=== PATIENT | female | born 1940 | race Caucasian/White ===

== ENCOUNTER → 2021-03-21 13:57 | Outpatient (CLI) | payer MEDICARE, SELFPAY ==
[2021-03-21 16:07] LABS: COVID19 -Nasal RAPID Negative (Negative)
== END ==
PROVIDERS: PCP Physician Assistant; Visit Provider Physician Assistant
DX: Z01.812 Encounter for preprocedural laboratory examination (principal); Z20.822 Contact with and (suspected) exposure to COVID-19
CPT/HCPCS: 87635; C9803

== ENCOUNTER 2021-03-23 09:07 | Observation (INO) | payer MEDICARE, SELFPAY ==
[2021-03-17 09:26] VITALS: BMI 28.8
[2021-03-22] VITALS (11 sets, daily range): BP systolic 123–142; BP diastolic 52–69; PULSE 55–81; RESP 15–20; TEMP 36.2–36.9; O2SAT 91–99; BMI 26.9
--- NOTE | 2021-03-22 | DI.RAD.S_ITS ---
PROCEDURE: XR KNEE RT 1TO2V INDICATIONS: POSTOP TECHNIQUE: 2 views of the knee were acquired. COMPARISON: None. FINDINGS: Bones: Total right knee arthroplasty in good position. There is an articular drain and postprocedural air noted. No evidence of fracture. Soft tissues: No joint effusion. No suspicious soft tissue calcifications. IMPRESSION: Right total knee arthroplasty in good position Dictated by: Pasha Ramirez M.D. on 03/22/2021 at 18:07 Approved by: Pasha Ramirez M.D. on 03/22/2021 at 18:08
[2021-03-22] MEDS: LACTATED RINGERS 1,000 ML 42 ML IV ×2 (12:22→16:55)
[2021-03-22] MEDS: VANCOMYCIN 1,000 MG/200 ML PIGGYBACK 200 MG IV (13:30)
--- NOTE | 2021-03-22 14:30 | PM.PREOP ---
Pre-operative Note COVID-19 COVID-19 status: Negative Interval Note History & Physical reviewed/Exam performed by Physician: Yes Changes to H&P: No
--- NOTE | 2021-03-22 14:31 | P.OP_ITS ---
Operative Date/Time/Diagnoses Date of procedure: 03/22/21 Time of procedure: 15:00 Pre-op diagnosis: right knee OA Post-op diagnosis: same Procedure & Clinicians Procedure: right total knee arthroplasy Same procedure as scheduled: Yes Indications: The patient has had progressively worsening right knee pain with radiographic changes consistent with arthritis. Non-operative management has failed and the patient has requested total knee replacement. The risks, benefits and alternatives to surgery were discussed with the patient prior to proceeding. Risks discussed included, but were not limited to, failure to relieve pain, stiffness, infection, nerve damage, deep venous thrombosis, pulmonary embolism, stroke, coma, heart attack, permanent paralysis and , as well as the potential need for eventual revision of the prosthetic. Surgeon: Micaela Pete Floral Assistant: Zaid Real Anesthesia Type: General and Spinal Operative Notes Findings: Severe right knee lateral compartment arthritis with valgus deformity, adequate bone good stability Closure Type: primary Specimen(s): none sent Prosthetic devices, grafts, tissues, transplants, or devices: Pete [employer] Nephew Journey BCS 2 femur size 5, tibia size 4, poly size +10, patella size 32 by 7.5 Applied: drain(s) Estimated Blood Loss (mL): 250 Blood products transfused: none Tourniquet time (min): 74 Procedure in detail: The patient was seen in the pre-operative area, where the patient identified the right knee as the operative site and this was marked with my initials. The patient received pre-operative antibiotics, and was taken to the operating room and placed on the operative table in the supine position. After satisfactory anesthesia, a news broadcaster out was performed. The right leg was encircled with a tourniquet about the proximal thigh, and the leg was prepared from the toes to the tourniquet with ChloroPrep in the usual fashion and draped through sterile drapes. The leg was elevated and exsanguinated with Eschmark bandage and the tourniquet inflated to [250] mmHg pressure. The knee was approached through an approximately 18 cm incision centered over the patella and carried into the knee through a medial parapatellar arthrotomy. A portion of the medial and lateral meniscus was resected. Soft tissue was carefully mobilized around the patella the patella was measured with a caliper. Bone was resected from the patella and the patellar height was reconstituted with up an appropriate sized patellar component. A cover was then placed on the patella. A small amount of additional medial and lateral meniscus was resected. The distal femur was cut at 5?. A [+2] cut was used. It looked like an appropriate distal femoral cut and the cut was made without difficulty. An extr amedullary guide was used for the tibial cut. 10 mm was resected off the least affected side.The tibia was prepared. The rotation was assessed. The patient was placed in extension residual medial and lateral meniscus as well as any residual bone was carefully resected. [No] additional tibia was resected. Hemostasis was achieved especially posteriorly. Additional local was injected into the posterior capsule. The extension gap was assessed and additional releases for gap balancing were performed as necessary. It was checked with the gap technical support specialist. The femoral component was trial was placed and the notch was finished. The rotation was assessed and the appropriate size femoral guide was placed on the distal femur and finishing cuts were made. There is no evidence of notching. The anterior, posterior and chamfer cuts were then made. The posterior osteophytes and soft tissues were then removed. The posterior capsule was injected with part of a mixture of 60 ml 0.25% Marcaine mixed with 20 ml Exparel for post operative pain control. The remainder of this mixture was injected into the capsule and subcutaneous tissues during cement curing. The tibial and femoral components were then placed and the knee placed through a range of motion. Range of motion was [0-130], with good stability throughout the range. The trials were then removed, and the tibia was finished. The bone was prepared with pulsatile lavage, and dried with a sponge. Cement was applied and the final prosthetics placed. Excess cement was removed during and after cement curing. A brief Betadine soak was performed. After confirming there was no extruded cement posteriorly, the final tibial insert was placed. The knee was copiously irrigated and the tourniquet deflated. Hemostasis was obtained with the Bovie ca utery. A drain was placed and brought out superolaterally. The capsule was closed with interrupted nonabsorbable suture. The subcutaneous layer was closed with barbed sutures, and the skin with a running 3-0 V-Lock suture and Surgical glue. An Aquacel Ag dressing was applied and the patient was taken to recovery having tolerated the procedure well. Complications: none Post-operative Condition: stable Disposition: Acute Care Plan for aftercare: The patient will be maintained on a standard total knee replacement protocol with weight bearing as tolerated. The patient will receive aspirin and sequential compression devices for DVT prophylaxis. The patient will be discharged home when safe for the home environment.
[2021-03-22] MEDS: CEFAZOLIN 1 GM VIAL 2 GM IV ×2 (15:21→22:08)
--- NOTE | 2021-03-22 15:35 | SUR.OPER ---
Supine on padded OR bed. Pillow under head, arms secured on padded armboards <90 degree abduction. Safety belt across torso. Non-operative leg secured with tape over blanket over lower leg. Operative leg secured in DeMayo/Sylvester/Nathe positioner. Foam padded brace at thigh of operative leg.
[2021-03-22] MEDS: BUPIVACAINE 0.25% W/ EPI 30 ML VIAL 60 ML INJ (15:43)
[2021-03-22] MEDS: BUPIVACAINE LIPOSOME 266 MG/20 ML VIAL INJ (15:43)
[2021-03-22] MEDS: SODIUM CHLORIDE IRRIG SOLUTION 250 ML, POVIDONE-IODINE SPONGE STICKS 1 APPLIC IRR (15:45)
--- NOTE | 2021-03-22 17:57 | SUR.PHASEI ---
Stable PACU stay, pt transported upstairs to room 22 after report called to RADHA Rush. Pt left in stable condition, bed low, locked and SCD'S on, call duke in reach.
[2021-03-22] MEDS: LACTATED RINGERS 1,000 ML 100 ML IV (19:11)
[2021-03-22] MEDS: ESCITALOPRAM 10 MG TABLET 5 MG PO (20:09)
[2021-03-22] MEDS: IBUPROFEN 400 MG TABLET PO (20:09)
[2021-03-22] MEDS: DOCUSATE 100 MG CAPSULE PO (20:09)
[2021-03-22] MEDS: ACETAMINOPHEN 325 MG TABLET 650 MG PO (20:10)
[2021-03-22] MEDS: ATORVASTATIN 20 MG TABLET PO (20:10)
[2021-03-22] MEDS: ASPIRIN EC 81 MG TABLET PO (20:10)
[2021-03-23] VITALS: BP 111/66; PULSE 72; RESP 16; TEMP 36.2; O2SAT 93
[2021-03-23] MEDS: IBUPROFEN 400 MG TABLET PO ×3 (00:54→09:10)
[2021-03-23] MEDS: LACTATED RINGERS 1,000 ML 100 ML IV (04:16)
[2021-03-23 05:16] VITALS: BP 102/48; PULSE 61; RESP 16; TEMP 36.2; O2SAT 92
[2021-03-23 06:02] LABS: Hematocrit 35.2 % (36-46); Hemoglobin 11.8 g/dL (12.0-16.0)
[2021-03-23] MEDS: CEFAZOLIN 1 GM VIAL 2 GM IV (06:03)
--- NOTE | 2021-03-23 07:48 | PM.PNPO.1 ---
Subjective Subjective Date Patient Seen: 03/23/21 Time Patient Seen: 07:50 Interval history: Pain 09/19. Denies fever or chills. No nausea or vomiting. Exam Vital Signs (past 8 hours): - 03/23/21 00:00 03/23/21 05:16 Temperature 97.2 F L 97.1 F L Pulse Rate 72 61 Respiratory Rate 16 16 Blood Pressure 111/66 102/48 L Pulse Oximetry 93 92 Oxygen Delivery Method Room Air Oxygen Flow Rate 0 Narrative Exam Narrative: 81-year-old female resting comfortably in bed in no apparent distress. Motor functions intact bilateral lower extremities. Sensation grossly intact to light touch. No calf tenderness. Dressing is Clean, dry, intact.. Drain in place. Objective Labs Result Diagrams: 03/23/21 05:36 Labs: Laboratory Results - last 24 hr 03/23/21 05:36 Hgb 11.8 L Hct 35.2 L PFSH Medical History (Updated 03/22/21 @ 12:56 by Ileana Murray RN) DVT of axillary vein, acute right GERD (gastroesophageal reflux disease) History of anesthesia reaction History of shingles (~2008) HLD (hyperlipidemia) LBBB (left bundle branch block) (~2015) Nerve pain SHARONA (obstructive sleep apnea) Pre-diabetes Right carpal tunnel syndrome Surgical History (Updated 03/17/21 @ 10:20 by Cassidy Israel RN) History of arthroplasty of left knee Hx of abdominoplasty Hx of bilateral cataract extraction Hx of plastic surgery Hx of tonsillectomy Social History household members: significant other Smoking Status: Never smoker alcohol intake: current Assessment & Plan Post-op Postoperative Procedures: Procedures Operation Date: 03/22/21 13:45 Actual Procedure Side Surgeon p Total Knee Arthroplasty Right Micaela Pete MD Postoperative day: 1 Postoperative status narrative: Patient progressing as expected status post total knee arthroplasty. Mobilize with physical therapy. Likely discharge home this afternoon.
[2021-03-23 08:15] VITALS: BP 115/57; PULSE 54; RESP 16; TEMP 36; O2SAT 96
[2021-03-23] MEDS: ACETAMINOPHEN 325 MG TABLET 650 MG PO ×3 (09:10→20:42)
[2021-03-23] MEDS: ASPIRIN EC 81 MG TABLET PO ×2 (09:10→20:42)
[2021-03-23] MEDS: DOCUSATE 100 MG CAPSULE PO ×2 (09:10→20:41)
--- NOTE | 2021-03-23 09:30 | PT.IIE ---
Current Diagnoses Unilateral primary osteoarthritis, right knee (03/23/21) Surgery Performed Operation Date: 03/22/21 13:45 Actual Procedures p Total Knee Arthroplasty(Right) - Micaela Pete MD Medical History (Last Updated 03/22/21 @ 12:56 by Ileana Murray RN) DVT of axillary vein, acute right GERD (gastroesophageal reflux disease) History of anesthesia reaction History of shingles (~2008) HLD (hyperlipidemia) LBBB (left bundle branch block) (~2015) Nerve pain SHARONA (obstructive sleep apnea) Pre-diabetes Right carpal tunnel syndrome Physical Therapy Inpatient Evaluation/Re-Eval M1 PT/OT-IP Prior Functional Status Start: 03/23/21 12:38 Freq: NEEDED Status: Active Protocol: Document 03/23/21 09:30 AB (Rec: 03/23/21 12:50 AB [id number]) Medical Review Prior Functional Status Medical History Reviewed Yes Communication able to make needs known Mobility and Gait pt stated that she is independent with all mobilities and ambulation using SPC Social History Household Members significant other Living Arrangements House Number of Floors (Floors) One Floor Number of Stairs To Enter/Railing? 2 platform steps to enter Home Environment High Toilet,Walk in Shower Home Equipment Front Wheel Walker,Straight Cane,Shower Seat without Backrest,Hand Held Shower,Grab Bars Near Toilet,Grab Bars In Shower Employment Status Retired M2 PT-IP Current Condition Start: 03/23/21 12:38 Freq: NEEDED Status: Active Protocol: Document 03/23/21 09:30 AB (Rec: 03/23/21 12:50 AB [id number]) Physical Therapy Current Condition Current Condition Evaluation Date 03/23/21 Treatment Diagnosis s/p R TKA; difficulty in walking Onset Date 03/22/21 Weight Bearing Status Weight Bearing Status Weight Bear as Tolerated Allowed Weight Bearing Amount (enter % RLE WBAT or #) (%) M3 PT-IP Subjective Start: 03/23/21 12:38 Freq: NEEDED Status: Active Protocol: Document 03/23/21 09:30 AB (Rec: 03/23/21 12:50 AB [id number]) Subjective Physical Therapy Visit Type Type Initial Evaluation Visit Start Time 09:30 Visit Stop Time 10:30 Total Visit Minutes 60 Number of NUCLEAR MEDICINE TECHNICIAN Visits 0 Therapy Pain Assessment Pain When Pain Assessed At Rest Pain Present Pain Present Pain Reported Location Right Knee Intensity 1 Scale Used Numeric (0 - 10) Pain Management Techniques Distraction,Modification of Treatment,Re-positioning, Timing of Activity with Medications M4 PT-IP Mobility and Gait Start: 03/23/21 12:38 Freq: NEEDED Status: Active Protocol: Document 03/23/21 09:30 AB (Rec: 03/23/21 12:50 AB [id number]) PT-Bed Mobility Assessment Supine to Sit Supine to Sit Standby Assistance Sit to Supine Sit to Supine Standby Assistance PT-Transfer Assessment Sit to and From Stand Sit to and from Stand Contact Guard Assistance, Minimal Assistance,Use of Upper Extremities Equipment Transfer Assistive Device Gait Belt,Front Wheeled Walker Orthotic/Prosthetic Devices or Brace: No Transfers Transfer Destination Bed,Chair Transfer Technique ambulated using FWW Transfer Ability Level of Assist Contact Guard Assistance, Minimal Assistance,1 Person Assistance,Use of Upper Extremities Comments Mobility Comments pt sitting on chair. significant other in room with pt. significant other stated that she broke her R hip before and is limited with physical assistance that she can provide to pt. pt completed sit to stand from chair x 3 reps min A and max cues. pt has decrease short term memory and requires cues for techniques and safety. pt ambulated in room ~ 30 ft using FWW min A. ambulated towards the bed. demonstrated sit<>supine SBA. completed sit to stand CGA to min A and max cues for techniques. pt ambulated to the chair using fWW CGA to min A. presents with antalgic gait. pt ambulated out in the hallway and completed up/down platform step x 2 sets min A and cues. ambulated back to the room using FWW CGA to min A and sat on chair. pt requested to go back to bed and completed step transfer using FWW CGA and cues. sit to supine SBA. positione dpt on the bed. call light and table placed within reach. set up caregiver training at 1pm this afternoon with pt and significant other. Gait Assessment Gait Gait Assistance Required: Contact Guard Assist,Minimum Assistance Distance (Feet) 30 Able to Maintain Weight Bearing Status Yes During Gait Assistive Devices Assistive Device Gait Belt,Front Wheeled Walker Orthotic/Prosthetic Devices or Brace: No Gait Deviations General Gait Pattern Antalgic,Decreased Stride Length,Decreased Feet Clearance Factors Limiting Gait Function Factors Limiting Gait Function Decreased Activity Tolerance, Decreased Strength,Difficulty Following Directions,Limited Range of Motion,Pain,Poor Balance,Poor Safety Awareness Stair Climbing Assessment Evaluation Level of Assist On Stairs Minimal Assistance Devices Stair Climbing Assistive Devices Front Wheel Walker Technique/Endurance Stair Climbing Direction Ascend and Descend Stair Climbing Technique Step to Step Number of Steps Climbed 1 Query Text: Stair Climbing Set # Repetitions (reps) 2 PT-Balance Assessment Sitting Balance and Reactions Static Sitting Balance Ability Good Dynamic Sitting Balance Ability Good Standing Balance and Reactions Static Standing Balance Ability Fair Dynamic Standing Balance Ability Fair Device Used FWW M5 PT-IP Objective Assessments Start: 03/23/21 12:38 Freq: NEEDED Status: Active Protocol: Document 03/23/21 09:30 AB (Rec: 03/23/21 12:50 AB [id number]) Orientation Orientation/Cognition Level of Alertness Alert Orientation Name,Place,Situation Language Function Ability No Deficits Noted Safety Awareness Decreased Safety Awareness Memory Description 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,Pole Tester Impaired Gross Range of Motion Lower Extremity ROM Assessment Within Functional Limits Strength Lower Extremity Strength Assessment Right Impaired Hip 4-/5 Knee 4-/5 Sensation Assessment Sensation Gross Sensation WNL Muscle Tone Muscle Tone WNL Yes M6 PT-IP Treatment Start: 03/23/21 12:38 Freq: NEEDED Status: Active Protocol: Document 03/23/21 09:30 AB (Rec: 03/23/21 12:50 AB [id number]) Physical Therapy Treatment Education Education Provided Precautions,Weight Bearing Status,Post-Op Packet,Safety M7 PT-IP Assessment and Plan Start: 03/23/21 12:38 Freq: NEEDED Status: Active Protocol: Document 03/23/21 09:30 AB (Rec: 03/23/21 12:50 AB [id number]) PT Summary Assessment and Plan Potential Rehabilitation Potential Good Status of Condition at Evaluation Stable Summary Impairments Pain,ROM,Strength,Balance, Coordination,Sensation,Tone, Cognition,Bed Mobility, Transfers,Gait,Activity Tolerance Assessment Summary pt requiring CGA to min A with mobility but requires max cues with all tasks. Set up caregiver training at 1 pm today. will assess progress for safe d/c home. pt stated that she is set up for outpt PT. Pt's significant other is limited with assistance she can provide with pt but will conduct caregiver and will assess safe d/c plan. Goals Bed Mobility Goal Standby Assistance Transfer Goal Standby Assistance,Front Wheeled Walker Gait Goal Standby Assistance,Front Wheel Walker Gait Distance 150 Other Goals up/down 2 platform steps using FWW CGA Days to Meet Goals 10 Frequency of Treatment Frequency Of Treatment Twice a Day Treatment Plan Physical Therapy Treatment Plan Bed Mobility Training,Transfer Training,Gait Training, Therapeutic Exercise,Balance Retraining,Post Op Education, Discharge Planning,Hot or Cold Pack,Neuromuscular Re-ed, Coordination Retraining,Manual Therapy Precautions Other Precautions RLE WBAT Recommendations To Nursing Amount of Assist Needed 1 Person Assist Discharge Recommendations PT Discharge Recommendations Home with 02/04 Assist Available,Outpatient PT Transportation Needs at Discharge Private Vehicle
[2021-03-23] MEDS: OXYCODONE IR 5 MG TABLET PO ×2 (11:28→15:37)
--- NOTE | 2021-03-23 11:35 | CM.DANOTE ---
DCP/Assessment: Reviewed chart. Patient is a 81yr old female admitted to [facility] for elective right TKA performed on 03-22-21. PCP listed is Osei Flynn. Primary payor is 1)Medicare 2)[facility]. Met with patient this AM explained CM/SW role. Patient resting comfortably in bed and spouse at bedside. Patient reports that she plans to d/c home when stable. Patient has all needed DME and outpatient therapy appointment scheduled in [place] on Sunday03-25-21. It is anticipated that patient will either d/c this afternoon vs. in AM. P: Home when stable. SHIN Lara Discharge Planning/Care Management CM Discharge Assessment Start: 03/23/21 11:20 Freq: Status: Active Protocol: Document 03/23/21 11:20 KJS (Rec: 03/23/21 11:35 KJS [id number]) Discharge Planning Assessment Assigned Diesel Motor Mechanic SHIN Lara Contact Information Raysa Graham (spouse) ph# [phone] Advance Directives? Yes Advance Directives on File No History Provided By Patient,Medical Record Prior Living Arrangements House Household Members significant other Type of transporation used prior to Drives own vehicle admit Independent with ADL's Yes Is patient alert and oriented? Yes Caregiver for Another No DME Already Rented / Owned FWW / Walker Patient/Family Preference OP PT Therapy Barriers to Discharge No Discharge Plan Home Transportation Arrangement Spouse to provide transport. Referrals Initiated None needed Whiteboard Updated in Patient Room with Yes name and ext. # of Diesel Motor Mechanic Review Status In Process Next Review Type Continued Stay Review Pre-Anesthesia Assessment Start: 03/17/21 09:26 Freq: Status: Complete Protocol: Document 03/17/21 09:26 CAB (Rec: 03/17/21 10:36 CAB [id number]) Pre-Anesthesia Assessment Preferred Name Sudha Patient Information Reviewed Via Phone Assessment Assessment Completed With Patient Diagnostic Results BMP/CMP,EKG Comment Outside Chem/EKG only scanned, COVID screen-needs to schedule Primary Care Provider Osei Perry Seen Specialist in Last 12 Months Yes Specialist Seen Orthopedist Primary Language Kinyarwanda Associate Theatre Professor Required No Height 162.56 cm Weight 76.204 kg Body Mass Index (BMI) 28.8 Hearing Ability Normal Visual Assist None Dentition Type Teeth, Natural Present Barriers to Learning None Hx Anesthesia Reactions Yes: PONV Hx Family Anesthesia Reaction No Hx Malignant Hyperthermia No Hx Blood Transfusions Yes: s/p LT TKA-autologous Hx Blood Transfusion Reaction No Anesthesia Review Requested No alcohol intake current alcohol intake frequency 0-2 drinks per day Smoking Status Never smoker Substance Use Type does not use Pain Present Pain Reported Musculoskeletal Symptoms Abnormal Gait,Difficulty Walking,Joint Pain History of Falling (Recent or History of Yes ) Patient is completely paralyzed or No completely immobile Prosthesis or Orthotic Device Cane Mental Status Oriented to own ability Is patient on oxygen? No Does patient have HALL/SOB No Hx Sleep Apnea Yes: Pt reports Mild, no CPAP Currently Taking a Beta Mayur No Can You Climb a Flight of Stairs Without No SOB Hx Chest Pain No Hx SOB No Hx Syncope or Dizziness No Anti-Coagulant Therapy No Has a Crossing Supervisor No Cardiac Testing No: Echo @ [facility] 11/06/19 Hx Pacemaker/ICD No Pacemaker Rep Required? No Cardiac Clearance Received Not Applicable Comment Echo report scanned to record Diet Type At Home Regular dysphagia No Gastrointestinal Symptoms Constipation,Diarrhea,Reflux Urinary Catheter Present No Hx Urinary Self Catheterization No Diabetes No: Pre-diabetes, new diagnosis Patient No Lactating No Hx Drug Resistant Organism No Presence of External or Internal Medical Yes: Left knee, eye lens Devices Have you had any close contact with No someone diagnosed with COVID-19? Marital Status Lives With spouse Prior Living Arrangements House Number of Floors (Floors) One Floor Support System Friend(s),Spouse Does the Patient Have Assistance After Yes: is 86, concern for Surgery ability to care for pt Patient Discharge Plan Description Return Home Comment Pt advised one day length of stay per surgeon Feels Safe in Current Environment Yes Been Physically Hurt or Threatened By a No Person in Current Environment Do you have thoughts of harming yourself None or others? Are you currently considering suicide? No Do you have a plan to hurt yourself or No Plan others? Do You Have Any Spiritual Beliefs That No May Affect Your HC Choices? Do You Have Any Cultural Practices That No May Affect Your HC Choices? Comment Zaheer Who Can We Speak to About Patient's Care Family, friends Identifying Code for Release of Patient Declines to issue Information Health Care Proxy/Next of Kin Raysa () Health Care Proxy Emergency Contact Name Raysa () Emergency Contact Advance Directives? Yes Advance Directives on File No Requested Patient Bring Advanced Yes Directives DOS Power of Tanning Wheel Filler Yes Power of Tanning Wheel Filler Name Raysa () Power of Tanning Wheel Filler PAC Instructions Do not shave/clip surgical site,Durable medical equipment ,Medications to take/avoid, Nasal antibiotic,No ETOH/ petroleum product on skin DOS, NPO,Post-op transportation,Pre -surgical wash,Sturdy shoes/ comfortable clothes,Do not bring valuables and remove jewelry
[2021-03-23 12:00] VITALS: BP 147/78; PULSE 70; RESP 24; TEMP 35.8; O2SAT 96
--- NOTE | 2021-03-23 12:01 | PM.DS.1 ---
History of Present Illness History of Present Illness Date Patient Seen: 03/23/21 Time Patient Seen: 12:01 Chief complaint: OPB Narrative: see progress note Discharge Providers Provider Date of admission: 03/23/21 09:07 Discharge Date: 03/23/21 Primary care physician: Osei Perry MD Consults: 03/22/21 17:52 Consult to Discharge Planning Routine Comment: Consult to Physical Therapy Evaluate & Treat Comment: Physician Instructions: postop TKA protocol Consult to Respiratory Therapy Evaluate & Treat Comment: Physician Instructions: Evaluate and treat Discharge provider: Zaid Real PA-C Summary Hospital Course Discharge Diagnosis: right knee osteoarthritis Hospital Course: Procedure: right total knee arthroplasy Same procedure as scheduled: Yes Indications: The patient has had progressively worsening right knee pain with radiographic changes consistent with arthritis. Non-operative management has failed and the patient has requested total knee replacement. The risks, benefits and alternatives to surgery were discussed with the patient prior to proceeding. Risks discussed included, but were not limited to, failure to relieve pain, stiffness, infection, nerve damage, deep venous thrombosis, pulmonary embolism, stroke, coma, heart attack, permanent paralysis and , as well as the potential need for eventual revision of the prosthetic. Surgeon: Micaela Pete Indigo Vat Tender Cloth: Zaid Real Anesthesia Type: General and Spinal Operative Notes Findings: Severe right knee lateral compartment arthritis with valgus deformity, adequate bone good stability Closure Type: primary Specimen(s): none sent Prosthetic devices, grafts, tissues, transplants, or devices: [employer] BCS 2 femur size 5, tibia size 4, poly size +10, patella size 32 by 7.5 Applied: drain(s) Estimated Blood Loss (mL): 250 Blood products transfused: none Tourniquet time (min): 74 Status at Discharge Cognitive/behavioral status at discharge: at baseline, oriented Functional status at discharge: uses cane/walker Overall status at discharge: patient is progressing back to baseline Exam Vital Signs (past 8 hours): - 03/23/21 05:16 03/23/21 08:15 Temperature 97.1 F L 96.8 F L Pulse Rate 61 54 L Respiratory Rate 16 16 Blood Pressure 102/48 L 115/57 L Pulse Oximetry 92 96 Oxygen Delivery Method Room Air Oxygen Flow Rate 0 Narrative Exam Narrative: see progress note Objective Labs Result Diagrams: 03/23/21 05:36 Labs: Laboratory Results - last 24 hr 03/23/21 05:36 Hgb 11.8 L Hct 35.2 L [facility] Medical History (Updated 03/22/21 @ 12:56 by Ileana Murray, RADHA) DVT of axillary vein, acute right GERD (gastroesophageal reflux disease) History of anesthesia reaction History of shingles (~2008) HLD (hyperlipidemia) LBBB (left bundle branch block) (~2015) Nerve pain SHARONA (obstructive sleep apnea) Pre-diabetes Right carpal tunnel syndrome Surgical History (Updated 03/17/21 @ 10:20 by Cassidy Israel RN) History of arthroplasty of left knee Hx of abdominoplasty Hx of bilateral cataract extraction Hx of plastic surgery Hx of tonsillectomy Social History household members: significant other Smoking Status: Never smoker alcohol intake: current Discharge Assessment & Plan Assessment and Plan Assessment: patient progressing as expected status post total knee arthroplasty Plan of Treatment: patient did well with physical therapy. Physical therapy will work with the patient and her caregiver again this afternoon and will be discharged home if safe for home environment. Weightbearing as tolerated. Standard total knee replacement protocol. Discharge Plan Discharge Plan Patient Disposition: Home Provider Discharge Comment: Discharge home after PT this afternoon Discharge orders & Medications Prescriptions: New acetaminophen 325 mg Tablet 650 mg PO TID Qty: 60 RF: 0 aspirin 81 mg Tablet,Delayed Release (Dr/Ec) 81 mg PO BID Qty: 60 RF: 0 ibuprofen 400 mg Tablet 400 mg PO Q4HR Qty: 60 RF: 0 docusate sodium [DOK] 100 mg Capsule 100 mg PO BID Qty: 20 RF: 0 oxycodone 5 mg Tablet 5 mg PO Q3HR PRN (Reason: Pain, Moderate (4-6)) Qty: 40 RF: 0 Continued atorvastatin 20 mg Tablet 20 mg PO BEDTIME RF: 0 escitalopram oxalate 5 mg Tablet 5 mg PO BEDTIME RF: 0 Discontinued ibuprofen 200 mg Capsule 200 mg PO QD-BID PRN (Reason: Pain) RF: 0 acetaminophen 500 mg Tablet 500 mg PO BID PRN (Reason: Pain) RF: 0 Follow up/Referrals: Osei Perry MD [Primary Care Provider] - Micaela Pete MD [Physician] - (2 weeks) Diet/Activity/Treatments Diet: Diet as Tolerated Activity: Weight-bearing as tolerated Cold/Heat Therapy: Apply ice to knee as needed Skin/Wound/Dressing Care Report to your healthcare provider any signs of infection, such as:: chills, fever, increased pain, unusual drainage and unusual redness Dressing: Keep dressing clean and dry. May remove Alton wrap in 48-72 hours. Leave dressing in place Visit Report/Discharge Packet Instructions: DI for Knee Replacement, DI for Prescription Opioid Use Stand Alone Forms: Surgery Discharge Discharge Data Primary Care Provider: Osei Perry Attending Provider: Micaela Pete
[2021-03-23] MEDS: ONDANSETRON 4 MG/2 ML INJ IV (13:25)
--- NOTE | 2021-03-23 13:37 | PT-IP ANOTE ---
checked on pt and pt refused PT. pt stated that she fainted. Significant other stated that pt was sitting on chair and was not feeling well and all of a sudden had her head tilted backwards and she called for the nurse. pt stated that she was unconscious for at least 2 min. Nurse came in and stated that pt is not going home today and will leave telemetry on pt. pt just want to rest at this time. will check back tomorrow for caregiver training.
--- NOTE | 2021-03-23 14:28 | P.CONS_ITS ---
History of Present Illness Consult details Date Patient Seen: 03/23/21 Time Patient Seen: 14:28 Chief complaint: OPB Narrative: This is an 81-year-old female with past medical history of hyperlipidemia, pre diabetes, SHARONA, and prior DVT who was admitted yesterday aft er a right total knee replacement with Orthopedic surgery. Patient was doing well with physical therapy today and work for about an hour. She then moved into the chair and in the middle of her meal she began to feel dizzy, diaphoretic, and passed out for about 30 seconds according to the nurse. She had had an oxycodone prior to her working with physical therapy. When she regained consciousness, there was no loss of bowel or bladder, and the patient was her usual self. She was clammy feeling afterwards which resolved within a few minutes. Prior to this she denied any chest pain, shortness of breath, dyspnea on exertion, headaches, vision changes. Her blood pressure yesterday was fairly unremarkable. After she regained consciousness her blood pressure was in the 140s, the patient was not on a security consultant at that time. She denies any recent fevers, chills, and her pain is currently controlled after her knee replacement. She has a history of a left bundle yesenia block for many years. She sees a signals intelligence analysis manager annually and has had previous echocardiograms and stress tests which have been unremarkable, although most recently these were many years ago. She does note that she has had another episode of syncope in the past, but this was many years ago and related to which she recalls a great amount of anxiety and stress at the time. During that episode she also felt carola phoretic and dizzy prior to passing out. Meds Home Medications and Allergies Home Medications Medication Instructions Recorded Confirmed Type atorvastatin 20 mg tablet 20 mg PO BEDTIME 03/17/21 03/22/21 History escitalopram oxalate 5 mg tablet 5 mg PO BEDTIME 03/17/21 03/22/21 History acetaminophen 325 mg tablet 650 mg PO TID #60 tab 03/23/21 Rx aspirin 81 mg tablet,delayed 81 mg PO BID #60 tab 03/23/21 Rx release docusate sodium 100 mg capsule 100 mg PO BID #20 cap 03/23/21 Rx (DOK) ibuprofen 400 mg tablet 400 mg PO Q4HR #60 tab 03/23/21 Rx oxycodone 5 mg tablet 5 mg PO Q3HR PRN #40 tab 03/23/21 Rx Allergies Allergy/AdvReac Type Severity Reaction Status Date / Time Sulfa (Sulfonamide Allergy Unknown-Childhood Verified 03/22/21 12:23 Antibiotics) reaction Review of Systems Review of Systems Narrative: All other systems reviewed with the patient and are negative unless otherwise stated. Exam Vital Signs (past 8 hours): - 03/23/21 08:15 03/23/21 12:00 Temperature 96.8 F L 96.4 F L Pulse Rate 54 L 70 Respiratory Rate 16 24 Blood Pressure 115/57 L 147/78 H Pulse Oximetry 96 96 Oxygen Delivery Method Room Air Oxygen Flow Rate 0 Narrative Exam Narrative: GENERAL APPEARANCE: Well developed, well nourished, in no acute distress. SKIN: Inspection of the skin reveals no rashes, ulcerations or petechiae. HEENT: Normocephalic atraumatic, extraocular muscles are intact, oropharynx is clear and mucous membranes are moist, neck is supple without adenopathy NECK: Supple and symmetric. There was no thyroid enlargement, and no tenderness, or masses were felt. CHEST: Normal AP diameter and normal contour without any kyphoscoliosis. LUNGS: Auscultation of the lungs revealed no wheezes, rhonchi, or rales. CARDIOVASCULAR: There was a regular rate and rhythm without any murmurs, gallops, rubs. Peripheral pulses were 2+ and symmetric. ABDOMEN: Soft and nontender with normal bowel sounds. No ascites was noted. MUSCULOSKELETAL: There was no tenderness or effusions noted. Muscle strength and tone were normal. EXTREMITIES: No cyanosis, clubbing or edema. NEUROLOGIC: Alert and oriented x 3. Normal affect. Gait was normal. Strength is +5/5 in the Upper Extremities and Lower Extremities Bilaterally. Sensation to touch was normal. Objective ECG Impression: LBBB, non-specific T wave abnormality in lateral leads, unknown chronicity. Appears similar to prior tracings Labs Result Diagrams: 03/23/21 05:36 Labs: Laboratory Results - last 24 hr 03/23/21 05:36 Hgb 11.8 L Hct 35.2 L Assessment & Plan Assessment & Plan narrative: This is an 81-year-old female with past medical history of hyperlipidemia, pre diabetes, SHARONA, and prior DVT who was admitted yesterday after a right total knee replacement with Orthopedic surgery. But a sitter as caudal today after episode of syncope. 1. Syncope - history is reassuring for benign etiology. Patient with known LBBB which is present on EKG, prior tracings appear quite similar. Patient's discharge held. Cannot completely rule out cardiac etiology but appears less likely. - initial labs unremarkable, mild leukocytosis. Will also repeat troponin at 8 hours given event was recent to rule out ACS though this is unlikely. - keep on telemetry. - if no concerning lab findings and no telemetry events can discharge home tomorrow. - h/h this AM 11.8 2. LBBB, chronic - patient with previous EKG similar to today's. Reports prior TTEs and stress tests which have been unremarkable. - continue telemetry. 3. SHARONA, chronic Code: full as discussed with the patient, surrogate decision maker is the patient's , Raysa at bedside. Thank you for the consultation. Medicine will continue to follow telemetry while the patient is still admitted and follow up repeat troponin, otherwise plan to sign off.
--- NOTE | 2021-03-23 14:49 | PC.NURSE ---
A&Ox3. VSS. Pain 2/10 in right knee relieved with scheduled tylenol and ibuprofen. Worked with PT around 11:00. Had an increase of pain to 5/10 and was given 5 mg oxycodone. Patient was eating lunch around 12:30 when significant other came running for help. This race and sports book writer and other staff found patient unresponsive sitting in her chair, head tilted back back and eyes open. After about 30 seconds the patient began to respond. Her vitals were taken: BP: 147/78, 70 bpm, 96.7 F, resp 24, 96% room air. Patient was diaphoretic and nauseous, had 600 cc emesis and another 200 after transferring back to her bed. Provider was notified. Patient was placed on Tele, BBB and sinus bradycardia. EKG performed and labs ordered. Left hand IV site leaking. New IV placed in right AC, left IV discontinued. Call light within reach, bed low.
[2021-03-23 14:52] LABS: Add Manual Diff / Slide Review NO; Basophils Absolute Auto 0 /uL (0-100); Basophils Percent Auto 0.3 % (0-2); Eosinophils Absolute Auto 0 /uL (0-450); Eosinophils Percent Auto 0.3 % (2-4); Hematocrit 34.5 % (36-46); Hemoglobin 11.4 g/dL (12.0-16.0); Lymphocytes Absolute Auto 1600 /uL (1100-4500); Lymphocytes Percent Auto 10.9 % (25-40); Mean Corpuscular HGB Conc 33.1 % (30-36); Mean Corpuscular Hemoglobin 31.7 PG (26-34); Mean Corpuscular Volume 95.7 fL (80-100); Monocytes Absolute Auto 1600 /uL (0-900); Monocytes Percent Auto 11.5 % (3-14); Neutrophils Absolute Auto 11100 /uL (1500-7000); Platelet Count 193 X10^3/uL (150-400); Red Cell Distribution Width 13.3 % (11.6-14.8); White Blood Cell Count 14.3 X10^3/uL (4.5-11.0)
[2021-03-23 15:14] LABS: Alanine Aminotransferase 15 IU/L (<35); Albumin 3.4 g/dL (3.5-5.0); Albumin Globulin Ratio 1.5 (1.0-2.8); Alkaline Phosphatase 52 U/L (38-126); Aspartate Aminotransferase 18 IU/L (14-36); BUN Creatinine Ratio 30.8 (6-22); Bilirubin Total 0.6 mg/dL (0.2-1.3); Blood Urea Nitrogen 20 mg/dL (7-17); Carbon Dioxide 27 mmol/L (22-32); Chloride 102 mmol/L (98-107); Estimated Glomerular Filt Rate > 60.0 mL/min (>60); Globulin 2.3 g/dL (1.7-4.1); Glucose 148 mg/dL (80-110); HEMOLYSIS < 15 (0-50); Magnesium 2.1 mg/dL (1.6-2.3); Potassium 3.8 mmol/L (3.4-5.1); Sodium 134 mmol/L (137-145); Total Protein 5.7 g/dL (6.3-8.2)
[2021-03-23 15:26] LABS: Troponin I < 0.012 ng/mL (0.01-0.034)
[2021-03-23 15:45] VITALS: BP 107/76; PULSE 60; RESP 16; TEMP 36.1; O2SAT 97
[2021-03-23] MEDS: SODIUM CHLORIDE 0.9% 500 ML 1000 ML IV (17:20)
--- NOTE | 2021-03-23 18:43 | PC.NURSE ---
Addendum entered by Janis Navarro R.N. 03/23/21 21:01: Dr Pete came to assess patient. Ordered 1 time dose of Dilaudid to assess for effects. If tolerated have orders to continue. Addendum entered by Janis Navarro R.N. 03/23/21 19:38: Spoke to Dr Mayberry about using tramadol, new orders placed. Dr Pete called and wanted to try PO toradol in place of ibuprofen. Toradol and ibuprofen are not to be given within 6 hours of each other. Will notify oncoming shift. Original Note: Shift note: Patients spouse came out of the room asking for help. This RN found PRE PLANNING ADVISOR and patient in toilet, patient was vomiting, diaphoretic, and pale. Patient c/o dizziness and weakness. Waiting for nausea to pass, brought inpatient recliner to door and transferred patient into chair after cleaning patient up from emesis. Notified Dr Mayberry that patient was near syncopal and tele reading was currently HR of 49. Ordered 500cc bolus of NS with stat EKG. Started to infuse bolus, patient c/o pain at IV site, inserted new line and continued bolus. Notified Dr Mayberry that both episodes of emesis and syncope/near syncope were after PO narcotic administration. Reassess patient after dinner which was able to eat 50% and reports feeling better. Asked to return to bed. Educated patient that for the remainder of this shift will be utilizing bedside commode for safety and easier transfers should it be necessary. Patient acknowledges and accepts recommendation. High fall risk d/t recent fall and episodes of syncope and near syncope today. Bed alarm on and call light in reach.
[2021-03-23] MEDS: TRAMADOL 50 MG TABLET 25 MG PO (19:47)
[2021-03-23] MEDS: KETOROLAC 10 MG TABLET PO (19:48)
[2021-03-23 20:03] VITALS: BP 117/88; PULSE 66; RESP 16; TEMP 36.4; O2SAT 99
[2021-03-23] MEDS: ESCITALOPRAM 10 MG TABLET 5 MG PO (20:41)
[2021-03-23] MEDS: ATORVASTATIN 20 MG TABLET PO (20:41)
[2021-03-23] MEDS: HYDROMORPHONE 2 MG TABLET PO (21:00)
[2021-03-23 22:29] LABS: Troponin I < 0.012 ng/mL (0.01-0.034)
[2021-03-24] VITALS (7 sets, daily range): BP systolic 112–143; BP diastolic 50–71; PULSE 62–85; RESP 16–18; TEMP 36.1–36.3; O2SAT 92–96
[2021-03-24] MEDS: HYDROMORPHONE 2 MG TABLET PO ×2 (00:20→18:59)
[2021-03-24] MEDS: LACTATED RINGERS 1,000 ML 100 ML IV ×2 (00:45→10:47)
--- NOTE | 2021-03-24 03:42 | PC.NURSE ---
This RN came in to assess patient and administer 2mg Diluadid one time dose order at 0000. BOILER REPAIR SUPERVISOR was in the room taking the patients vitals and informed the RN that the patient had just gotten up to the bedside commode and her VS decreased while on the commode. Prior to getting up, VS were 128/59, while at the commode they were 93/62 and the patient c/o lightheaded and dizziness. BOILER REPAIR SUPERVISOR assisted patient back into bed and VS were 111/44. All VS taken by BOILER REPAIR SUPERVISOR were done on the right arm. This RN raised the head of the patients bed to 35 degrees and retook the patients VS on the Left arm which read 127/59. MARY Polanco was notified of event and that no fluids were currently going. Verbal orders were given to continue the patients current order of LR at 100 mL/hr which were DC with AM shift. Patient was given pain medication, call light left within reach, and no other requests at this time.
[2021-03-24] MEDS: TRAMADOL 50 MG TABLET 25 MG PO (04:56)
[2021-03-24] MEDS: IBUPROFEN 400 MG TABLET PO ×5 (04:56→20:50)
[2021-03-24] MEDS: ASPIRIN EC 81 MG TABLET PO ×2 (08:48→20:51)
[2021-03-24] MEDS: DOCUSATE 100 MG CAPSULE PO ×2 (08:48→20:50)
[2021-03-24] MEDS: HYDROMORPHONE 2 MG TABLET 4 MG PO ×2 (08:49→12:32)
[2021-03-24] MEDS: ACETAMINOPHEN 325 MG TABLET 650 MG PO ×3 (08:49→20:51)
--- NOTE | 2021-03-24 10:25 | PT.IPTN ---
Current Diagnoses Unilateral primary osteoarthritis, right knee (03/23/21) Surgery Performed Operation Date: 03/22/21 13:45 Actual Procedures p Total Knee Arthroplasty(Right) - Micaela Pete MD Physical Therapy Treatment Note M2 PT-IP Current Condition Start: 03/23/21 12:38 Freq: NEEDED Status: Active Protocol: Document 03/23/21 09:30 AB (Rec: 03/23/21 12:50 AB [email or web address]) Physical Therapy Current Condition Current Condition Evaluation Date 03/23/21 Treatment Diagnosis s/p R TKA; difficulty in walking Onset Date 03/22/21 Weight Bearing Status Weight Bearing Status Weight Bear as Tolerated Allowed Weight Bearing Amount (enter % RLE WBAT or #) (%) M3 PT-IP Subjective Start: 03/23/21 12:38 Freq: NEEDED Status: Active Protocol: Document 03/24/21 10:25 AB (Rec: 03/24/21 13:33 AB [id number]) Subjective Physical Therapy Visit Type Type Treatment Note Visit Start Time 10:25 Visit Stop Time 11:40 Total Visit Minutes 75 Number of SPECIALIST PHYSICIAN Visits 0 Physical Therapy Visit Comments Patient Comments pt stated that pain is better but voiced concerns about moving and pain going to increase again. pt educated and agreed to do PT; pt's significant other in room for caregiver training Therapy Pain Assessment Pain When Pain Assessed At Rest Pain Present Pain Present Pain Reported Location Right Knee Intensity 3 Scale Used Numeric (0 - 10) Pain Management Techniques Distraction,Modification of Treatment,Re-positioning, Timing of Activity with Medications M4 PT-IP Mobility and Gait Start: 03/23/21 12:38 Freq: NEEDED Status: Active Protocol: Document 03/24/21 10:25 AB (Rec: 03/24/21 13:33 AB [email or web address]) PT-Bed Mobility Assessment Supine to Sit Supine to Sit Minimal Assistance Sit to Supine Sit to Supine Minimal Assistance PT-Transfer Assessment Sit to and From Stand Sit to and from Stand Contact Guard Assistance, Minimal Assistance,1 Person Assistance,Use of Upper Extremities Equipment Transfer Assistive Device Gait Belt,Front Wheeled Walker Orthotic/Prosthetic Devices or Brace: No Transfers Transfer Destination Bed,Chair Transfer Technique ambulated using FWW Transfer Ability Level of Assist Contact Guard Assistance, Minimal Assistance,1 Person Assistance,Use of Upper Extremities Comments Mobility Comments caregiver training conducted. educated pt's S.O.( significant other) regarding use of safety belt and how to assist pt. S.O was able to put safety belt on but with cues and tends to be unsure on how to manage pt and requires constant cues for directions. S.O assisted pt with sit to stand and and pt ambulated towards the bed using FWW with SO assisting. pt completed sit <>supine and instructed SO on how to assist pt. pt ambulated again towards the platform step using FWW with SO assisting. completed up/ down platform step using FWW SO assisting but PT also provided min A due to pt's unsteadiness. pt ambulated back to the room using FWW and SOC assisted pt. pt requested to go back to bed and completed bed mobility with SO assisting pt. positioned pt on the bed but then stated that she has to use the toilet. refused to walk to the toilet and just wants the bedside commode. stated that they have a bedside commode at home. completed supine to sit min A from SO. SO donned safety belt but continues to require cues on how to manage. SO assisted pt with sit to stand and transfer to bedside commode using fWW but require instructions from PT on how to complete as SO is not sure on how to assist pt. pt completed sit to stand from bedside commode with SO assisting and also assisted pt with hygiene care. pt completed step transfer back to bed using FWW and bed mobiltiy sit to supine with SO assisting pt. positioned pt in bed. call ight and table placed within reach. informed pt regarding mobility concerns and that further caregiver training is needed. pt and SO understood. pt also keep repeating that she does not want to go home today but tomorrow. Left pt in room with significant other. Gait Assessment Gait Gait Assistance Required: Minimum Assistance Distance (Feet) 12 Able to Maintain Weight Bearing Status Yes During Gait Assistive Devices Assistive Device Gait Belt,Front Wheeled Walker Orthotic/Prosthetic Devices or Brace: No Gait Deviations General Gait Pattern Antalgic,Decreased Stride Length,Decreased Feet Clearance Factors Limiting Gait Function Factors Limiting Gait Function Decreased Activity Tolerance, Decreased Strength,Difficulty Following Directions,Limited Range of Motion,Pain,Poor Balance,Poor Safety Awareness Stair Climbing Assessment Evaluation Level of Assist On Stairs Minimal Assistance,2 Person Assistance Devices Stair Climbing Assistive Devices Front Wheel Walker Technique/Endurance Stair Climbing Direction Ascend and Descend Stair Climbing Technique Step to Step Number of Steps Climbed 1 Stair Climbing Set # Repetitions (reps) 1 M5 PT-IP Objective Assessments Start: 03/23/21 12:38 Freq: NEEDED Status: Active Protocol: Document 03/23/21 09:30 AB (Rec: 03/23/21 12:50 AB [id number]) Orientation Orientation/Cognition Level of Alertness Alert Orientation Name,Place,Situation Language Function Ability No Deficits Noted Safety Awareness Decreased Safety Awareness Memory Description 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,Detention Impaired Gross Range of Motion Lower Extremity ROM Assessment Within Functional Limits Strength Lower Extremity Strength Assessment Right Impaired Hip 4-/5 Knee 4-/5 Sensation Assessment Sensation Gross Sensation WNL Muscle Tone Muscle Tone WNL Yes M6 PT-IP Treatment Start: 03/23/21 12:38 Freq: NEEDED Status: Active Protocol: Document 03/24/21 10:25 AB (Rec: 03/24/21 13:33 AB [id number]) Physical Therapy Treatment Exercises Exercises Heel Slides Education Education Provided Safety M7 PT-IP Assessment and Plan Start: 03/23/21 12:38 Freq: NEEDED Status: Active Protocol: Document 03/24/21 10:25 AB (Rec: 03/24/21 13:33 AB [id number]) PT Summary Assessment and Plan Potential Rehabilitation Potential Fair Summary Impairments Pain,ROM,Strength,Balance, Coordination,Sensation,Tone, Cognition,Bed Mobility, Transfers,Gait,Activity Tolerance Progress Towards Goals Slow Progress due to Pain,Slow Progress due to Medical Issues,Slow Progress due to Activity Tolerance Assessment Summary caregiver training conducted but further training is needed . will continue to assess progress. pt continues to be limited with mobility due to c /o pain and also has decrease activity tolerance and unable to ambulate far. will continue to assess progress. Goals Bed Mobility Goal Standby Assistance Transfer Goal Standby Assistance,Front Wheeled Walker Gait Goal Standby Assistance,Front Wheel Walker Gait Distance 150 Other Goals up/down 2 platform steps using FWW CGA Days to Meet Goals 10 Frequency of Treatment Frequency Of Treatment Twice a Day Treatment Plan Physical Therapy Treatment Plan Bed Mobility Training,Transfer Training,Gait Training, Therapeutic Exercise,Balance Retraining,Post Op Education, Discharge Planning,Hot or Cold Pack,Neuromuscular Re-ed, Coordination Retraining,Manual Therapy Precautions Other Precautions RLE WBAT Recommendations To Nursing Amount of Assist Needed 1 Person Assist Discharge Recommendations PT Discharge Recommendations Home with 02/04 Assist Available,SNF Rehab,Outpatient PT,Home vs SNF Transportation Needs at Discharge Private Vehicle
--- NOTE | 2021-03-24 14:00 | PT.IPTN ---
Current Diagnoses Unilateral primary osteoarthritis, right knee (03/23/21) Surgery Performed Operation Date: 03/22/21 13:45 Actual Procedures p Total Knee Arthroplasty(Right) - Micaela Pete MD Physical Therapy Treatment Note M2 PT-IP Current Condition Start: 03/23/21 12:38 Freq: NEEDED Status: Active Protocol: Document 03/23/21 09:30 AB (Rec: 03/23/21 12:50 AB [email or web address]) Physical Therapy Current Condition Current Condition Evaluation Date 03/23/21 Treatment Diagnosis s/p R TKA; difficulty in walking Onset Date 03/22/21 Weight Bearing Status Weight Bearing Status Weight Bear as Tolerated Allowed Weight Bearing Amount (enter % RLE WBAT or #) (%) M3 PT-IP Subjective Start: 03/23/21 12:38 Freq: NEEDED Status: Active Protocol: Document 03/24/21 14:00 AB (Rec: 03/24/21 16:56 AB [id number]) Subjective Physical Therapy Visit Type Type Treatment Note Visit Start Time 14:00 Visit Stop Time 14:45 Total Visit Minutes 45 Number of DAIRY CATTLE FARMER Visits 0 Physical Therapy Visit Comments Patient Comments pt is agreeable to do PT; significant other in room Therapy Pain Assessment Pain When Pain Assessed At Rest Pain Present Pain Present Pain Reported Location Right Knee Intensity 3 Scale Used Numeric (0 - 10) M4 PT-IP Mobility and Gait Start: 03/23/21 12:38 Freq: NEEDED Status: Active Protocol: Document 03/24/21 14:00 AB (Rec: 03/24/21 16:56 AB [email or web address]) PT-Bed Mobility Assessment Supine to Sit Supine to Sit Minimal Assistance PT-Transfer Assessment Sit to and From Stand Sit to and from Stand Contact Guard Assistance, Minimal Assistance,1 Person Assistance,Use of Upper Extremities Equipment Transfer Assistive Device Gait Belt,Front Wheeled Walker Orthotic/Prosthetic Devices or Brace: No Transfers Transfer Destination Chair Transfer Technique ambulated Transfer Ability Level of Assist Contact Guard Assistance, Minimal Assistance,1 Person Assistance,Use of Upper Extremities Comments Mobility Comments caregiver training conducted. Significant other was able to assist pt for supine to sit, gino safety belt and assisted pt with sit to stand. pt ambulated out towards the platform step using FWW with sig. other assisting and completed up/down platform step x 2 sets with assist from sig. other. pt ambulated more afterwards ~ 50 ft using fWW with significant other assisting and cueing pt. pt ambulated back to her room and sat on chair. positioned on chair. call light and table placed within reach. pt and signficant other feeling more comfortable about going home tomorrow. Gait Assessment Gait Gait Assistance Required: Contact Guard Assist,Minimum Assistance Distance (Feet) 50 Able to Maintain Weight Bearing Status Yes During Gait Assistive Devices Assistive Device Gait Belt,Front Wheeled Walker Orthotic/Prosthetic Devices or Brace: No Gait Deviations General Gait Pattern Antalgic,Decreased Stride Length,Decreased Feet Clearance,Flexed Trunk,Step-to Gait Factors Limiting Gait Function Factors Limiting Gait Function Decreased Activity Tolerance, Decreased Strength,Difficulty Following Directions,Limited Range of Motion,Pain,Poor Balance,Poor Safety Awareness Stair Climbing Assessment Evaluation Level of Assist On Stairs 1 Person Assistance Devices Stair Climbing Assistive Devices Front Wheel Walker Technique/Endurance Stair Climbing Direction Ascend and Descend Stair Climbing Technique Step to Step Number of Steps Climbed 1 Stair Climbing Set # Repetitions (reps) 2 Comments Stair Climbing Comments pt completed up/down platform step M5 PT-IP Objective Assessments Start: 03/23/21 12:38 Freq: NEEDED Status: Active Protocol: Document 03/23/21 09:30 AB (Rec: 03/23/21 12:50 AB [email or web address]) Orientation Orientation/Cognition Level of Alertness Alert Orientation Name,Place,Situation Language Function Ability No Deficits Noted Safety Awareness Decreased Safety Awareness Memory Description 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,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 Gross Range of Motion Lower Extremity ROM Assessment Within Functional Limits Strength Lower Extremity Strength Assessment Right Impaired Hip 4-/5 Knee 4-/5 Sensation Assessment Sensation Gross Sensation WNL Muscle Tone Muscle Tone WNL Yes M6 PT-IP Treatment Start: 03/23/21 12:38 Freq: NEEDED Status: Active Protocol: Document 03/24/21 14:00 AB (Rec: 03/24/21 16:56 AB [email or web address]) Physical Therapy Treatment Education Education Provided Weight Bearing Status,Safety M7 PT-IP Assessment and Plan Start: 03/23/21 12:38 Freq: NEEDED Status: Active Protocol: Document 03/24/21 14:00 AB (Rec: 03/24/21 16:56 AB [email or web address]) PT Summary Assessment and Plan Potential Rehabilitation Potential Good Summary Impairments Pain,ROM,Strength,Balance, Coordination,Sensation,Tone, Cognition,Bed Mobility, Transfers,Gait,Activity Tolerance Progress Towards Goals Slow Progress due to Pain,Slow Progress due to Medical Issues,Slow Progress due to Activity Tolerance Assessment Summary caregiver training conducted again and significant other was able to assist and cue pt better this session. pt continues to have decrease activity tolerance and may benefit from HHPT initially to work on overall strength and mobility prior to outpt PT. Goals Bed Mobility Goal Standby Assistance Transfer Goal Standby Assistance,Front Wheeled Walker Gait Goal Standby Assistance,Front Wheel Walker Gait Distance 150 Other Goals up/down 2 platform steps using FWW CGA Days to Meet Goals 10 Frequency of Treatment Frequency Of Treatment Twice a Day Treatment Plan Physical Therapy Treatment Plan Bed Mobility Training,Transfer Training,Gait Training, Therapeutic Exercise,Balance Retraining,Post Op Education, Discharge Planning,Hot or Cold Pack,Neuromuscular Re-ed, Coordination Retraining,Manual Therapy Precautions Other Precautions RLE WBAT Recommendations To Nursing Amount of Assist Needed 1 Person Assist Discharge Recommendations PT Discharge Recommendations Home with 02/04 Assist Available,Home Health Transportation Needs at Discharge Private Vehicle
--- NOTE | 2021-03-24 15:22 | PM.PNPO.1 ---
Subjective Subjective Date Patient Seen: 03/24/21 Time Patient Seen: 15:22 Interval history: Patient states she is doing well overall and is in mild discomfort at rest. At this time she rates her pain a 3/10 in intensity. Patient denies fever, chills, nausea, chest pain shortness of breath, or urinary retention. She reports good sensation throughout the bilateral lower extremities. She notes that she has not experienced further dizzy episodes since yesterday that led to her fall. Exam Vital Signs (past 8 hours): - 03/24/21 08:00 03/24/21 12:00 Temperature 97.2 F L 97.3 F L Pulse Rate 65 63 Pulse Rate [Orthostatic Lying] 65 Pulse Rate [Orthostatic Sitting] 70 Pulse Rate [Orthostatic Standing] 74 Respiratory Rate 18 17 Blood Pressure 139/64 142/64 H Blood Pressure [Orthostatic Lying] 139/64 Blood Pressure [Orthostatic Sitting] 126/52 L Blood Pressure [Orthostatic Standing] 136/60 Pulse Oximetry 95 92 Oxygen Delivery Method Room Air Oxygen Flow Rate 0 Narrative Exam Narrative: 81-year-old female postop day 2 status post right total knee arthroplasty. Patient is resting comfortably in bed, is in no acute distress, and is alert and oriented x3. Skin is warm, dry, and pink. Good sensation appreciated throughout the bilateral lower extremities to light touch. Ankle dorsiflexion, plantar flexion, eversion, inversion performed bilaterally without difficulty or discomfort. DP pulses palpated bilaterally and or even. Calves are soft nontender, negative Homans sign. No other signs of DVT appreciated. Const General: cooperative, healthy appearing and comfortable Resp Effort & Inspection: normal respiratory effort and able to speak in complete sentences Skin General: no rashes or lesions noted Objective Labs Result Diagrams: 03/23/21 14:46 03/23/21 14:46 Labs: Laboratory Results - last 24 hr 03/23/21 03/23/21 14:46 21:46 Sodium 134 L Potassium 3.8 Chloride 102 Carbon Dioxide 27 BUN 20 H Creatinine 0.65 Estimated GFR > 60.0 BUN/Creatinine Ratio 30.8 H Glucose 148 H Calcium 9.0 Magnesium 2.1 Total Bilirubin 0.6 AST 18 ALT 15 Alkaline Phosphatase 52 Troponin I < 0.012 < 0.012 Total Protein 5.7 L Albumin 3.4 L Globulin 2.3 Albumin/Globulin Ratio 1.5 PFSH Medical History DVT of axillary vein, acute right GERD (gastroesophageal reflux disease) History of anesthesia reaction History of shingles (~2008) HLD (hyperlipidemia) LBBB (left bundle branch block) (~2015) Nerve pain SHARONA (obstructive sleep apnea) Pre-diabetes Right carpal tunnel syndrome Surgical History History of arthroplasty of left knee Hx of abdominoplasty Hx of bilateral cataract extraction Hx of plastic surgery Hx of tonsillectomy Family History Grandmother Diabetes mellitus Hypertension Grandfather Diabetes mellitus Social History household members: significant other Smoking Status: Never smoker alcohol intake: current Assessment & Plan Post-op Postoperative Procedures: Procedures Operation Date: 03/22/21 13:45 Actual Procedure Side Surgeon p Total Knee Arthroplasty Right Micaela Pete MD Postoperative day: 2 Postoperative status: doing well Postoperative plan: ambulate Postoperative plan narrative: Patient is to continue working on ambulation with the assistance of a front wheeled walker with physical therapy. Current pain management regimen is to be continued as it has adequately controlled the patient's pain level. Aspirin 81 mg twice daily is to be continued for DVT prophylaxis along with the assistance of sequential compression devices. Pending successful work with PT plan for discharge likely home tomorrow.
[2021-03-24] MEDS: ATORVASTATIN 20 MG TABLET PO (20:50)
[2021-03-24] MEDS: ESCITALOPRAM 10 MG TABLET 5 MG PO (20:50)
[2021-03-25] VITALS: BP 123/59; PULSE 70; RESP 16; TEMP 36.1; O2SAT 94
[2021-03-25] MEDS: IBUPROFEN 400 MG TABLET PO ×4 (00:35→12:45)
[2021-03-25 05:00] VITALS: BP 130/67; BP 134/35; BP 135/64; PULSE 64; PULSE 70; PULSE 76; RESP 16; TEMP 35.8; O2SAT 96
[2021-03-25 08:20] VITALS: BP 139/55; BP 139/61; BP 142/72; PULSE 69; PULSE 70; PULSE 76
[2021-03-25 08:22] VITALS: BP 139/61; PULSE 69; RESP 16; TEMP 36.2; O2SAT 96
[2021-03-25] MEDS: SODIUM CHLORIDE 0.9% FLUSH 10 ML IV (08:43)
[2021-03-25] MEDS: ACETAMINOPHEN 325 MG TABLET 650 MG PO (08:43)
[2021-03-25] MEDS: ASPIRIN EC 81 MG TABLET PO (08:43)
[2021-03-25] MEDS: DOCUSATE 100 MG CAPSULE PO (08:43)
[2021-03-25] MEDS: HYDROMORPHONE 2 MG TABLET PO ×2 (08:43→15:30)
--- NOTE | 2021-03-25 10:17 | PT.IPTN ---
Current Diagnoses Unilateral primary osteoarthritis, right knee (03/23/21) Surgery Performed Operation Date: 03/22/21 13:45 Actual Procedures p Total Knee Arthroplasty(Right) - Micaela Pete MD Physical Therapy Treatment Note M2 PT-IP Current Condition Start: 03/23/21 12:38 Freq: NEEDED Status: Active Protocol: Document 03/23/21 09:30 AB (Rec: 03/23/21 12:50 AB [email or web address]) Physical Therapy Current Condition Current Condition Evaluation Date 03/23/21 Treatment Diagnosis s/p R TKA; difficulty in walking Onset Date 03/22/21 Weight Bearing Status Weight Bearing Status Weight Bear as Tolerated Allowed Weight Bearing Amount (enter % RLE WBAT or #) (%) M3 PT-IP Subjective Start: 03/23/21 12:38 Freq: NEEDED Status: Active Protocol: Document 03/25/21 10:17 AB (Rec: 03/25/21 12:39 AB [email or web address]) Subjective Physical Therapy Visit Type Type Treatment Note Visit Start Time 10:17 Visit Stop Time 10:38 Total Visit Minutes 21 Number of ACCOUNTS RECEIVABLE SUPERVISOR Visits 0 Physical Therapy Visit Comments Patient Comments pt is agreeable to do PT Therapy Pain Assessment Pain When Pain Assessed At Rest Pain Present Pain Present Pain Reported Location Right Knee Intensity 3 Scale Used Numeric (0 - 10) Pain Management Techniques Modification of Treatment,Re- positioning,Timing of Activity with Medications M4 PT-IP Mobility and Gait Start: 03/23/21 12:38 Freq: NEEDED Status: Active Protocol: Document 03/25/21 10:17 AB (Rec: 03/25/21 12:39 AB [id number]) PT-Bed Mobility Assessment Sit to Supine Sit to Supine Standby Assistance PT-Transfer Assessment Sit to and From Stand Sit to and from Stand Contact Guard Assistance,1 Person Assistance,Use of Upper Extremities Equipment Transfer Assistive Device Gait Belt,Front Wheeled Walker Orthotic/Prosthetic Devices or Brace: No Transfers Transfer Destination Bed Transfer Technique ambulated Transfer Ability Level of Assist Contact Guard Assistance,1 Person Assistance,Use of Upper Extremities Comments Mobility Comments pt stated that she is feeling better. agreed to do PT. completed sit to stand CGA and ambulated using FWW ~ 75 ft CGA. cues for upright posture and steadiness. pt requested to go back to bed and completed sit to supine SBA. positioned pt on the bed. call light and table placed within reach. Gait Assessment Gait Gait Assistance Required: Contact Guard Assist Distance (Feet) 75 Able to Maintain Weight Bearing Status Yes During Gait Assistive Devices Assistive Device Gait Belt,Front Wheeled Walker Orthotic/Prosthetic Devices or Brace: No Gait Deviations General Gait Pattern Antalgic,Decreased Stride Length,Decreased Feet Clearance Factors Limiting Gait Function Factors Limiting Gait Function Decreased Activity Tolerance, Decreased Strength,Pain,Poor Balance,Poor Safety Awareness Stair Climbing Assessment Comments Stair Climbing Comments refused stair climbing today. 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 Impaired Gross Range of Motion Lower Extremity ROM Assessment Within Functional Limits Strength Lower Extremity Strength Assessment Right Impaired Hip 4-/5 Knee 4-/5 Sensation Assessment Sensation Gross Sensation WNL Muscle Tone Muscle Tone WNL Yes M6 PT-IP Treatment Start: 03/23/21 12:38 Freq: NEEDED Status: Active Protocol: Document 03/25/21 10:17 AB (Rec: 03/25/21 12:39 AB [email or web address]) Physical Therapy Treatment Education Education Provided Safety M7 PT-IP Assessment and Plan Start: 03/23/21 12:38 Freq: NEEDED Status: Active Protocol: Document 03/25/21 10:17 AB (Rec: 03/25/21 12:39 AB [email or web address]) PT Summary Assessment and Plan Potential Rehabilitation Potential Good Summary Impairments Pain,ROM,Strength,Balance, Coordination,Sensation,Tone, Cognition,Bed Mobility, Transfers,Gait,Activity Tolerance Progress Towards Goals Slow Progress due to Activity Tolerance Assessment Summary pt requiring CGA with mobility using FWW and pt planst to go home with significant other to assist her. pt may go home when medically stable. Goals Bed Mobility Goal Standby Assistance Transfer Goal Standby Assistance,Front Wheeled Walker Gait Goal Standby Assistance,Front Wheel Walker Gait Distance 150 Other Goals up/down 2 platform steps using FWW CGA Days to Meet Goals 10 Frequency of Treatment Frequency Of Treatment Twice a Day Treatment Plan Physical Therapy Treatment Plan Bed Mobility Training,Transfer Training,Gait Training, Therapeutic Exercise,Balance Retraining,Post Op Education, Discharge Planning,Hot or Cold Pack,Neuromuscular Re-ed, Coordination Retraining,Manual Therapy Precautions Other Precautions RLE WBAT Recommendations To Nursing Amount of Assist Needed 1 Person Assist Discharge Recommendations PT Discharge Recommendations Home with 24/ Assist Available,Home Health Transportation Needs at Discharge Private Vehicle
[2021-03-25 11:06] VITALS: BP 129/67; PULSE 65; RESP 16; TEMP 36.9; O2SAT 96
--- NOTE | 2021-03-25 13:35 | P.DS_ITS ---
History of Present Illness History of Present Illness Date Patient Seen: 03/25/21 Time Patient Seen: 13:35 Chief complaint: OPB Narrative: Refer to previous HPI. Discharge Providers Provider Date of admission: 03/23/21 09:07 Discharge Date: 03/25/21 Primary care physician: Osei Perry MD Consults: 03/22/21 17:52 Consult to Discharge Planning Routine Comment: Consult to Physical Therapy Evaluate & Treat Comment: Physician Instructions: postop TKA protocol Consult to Respiratory Therapy Evaluate & Treat Comment: Physician Instructions: Evaluate and treat Discharge provider: Mendoza Marroquin PA-C Summary Hospital Course Discharge Diagnosis: Right knee osteoarthritis Status post right total knee arthroplasty Hospital Course: Patient was admitted to the hospital following the above-listed procedure for the above-listed diagnosis. Following the procedure the patient has been convalescing appropriately her pain has been managed with current pain management regimen. Aspirin 81 mg twice daily has been administered for DVT prophylaxis along with the assistance of sequential compression devices. Aquacel dressing over the incision site has remained clean, dry, and intact following surgery. Throughout the course of her time in the hospital patient has denied fever, chills, nausea, chest pain, shortness of breath, or urinary retention. He has remained weight-bearing as tolerated with the assistance of a front wheeled walker. She has successfully worked on ambulation with physical therapy. Status at Discharge Cognitive/behavioral status at discharge: oriented Functional status at discharge: uses cane/walker Overall status at discharge: patient is progressing back to baseline Exam Vital Signs (past 8 hours): - 03/25/21 08:20 03/25/21 08:22 03/25/21 11:06 Temperature 97.1 F L 98.5 F Pulse Rate 69 65 Pulse Rate [Orthostatic Lying] 70 Pulse Rate [Orthostatic Sitting] 69 Pulse Rate [Orthostatic Standing] 76 Respiratory Rate 16 16 Blood Pressure 139/61 129/67 Blood Pressure [Orthostatic Lying] 139/55 L Blood Pressure [Orthostatic Sitting] 139/61 Blood Pressure [Orthostatic Standing] 142/72 H Pulse Oximetry 96 96 Oxygen Delivery Method Room Air Oxygen Flow Rate 0 Narrative Exam Narrative: 1-year-old female postop day 3 status post right total knee arthroplasty. Patient is resting comfortably in bed, is in no acute distress, and is alert and oriented x3. Skin is warm, dry, and pink. Aquacel dressing over the incision site is clean, dry, and intact. Good sensation appreciated throughout the bilateral lower extremities to light touch. Ankle dorsiflexion, plantar flexion, eversion, inversion performed bilaterally without difficulty or discomfort. DP pulses palpated bilaterally and or even. Calves are soft nontender, negative Homans sign. No other signs of DVT appreciated. Const General: cooperative, healthy appearing and comfortable Resp Effort & Inspection: normal respiratory effort and able to speak in complete sentences Skin General: no rashes or lesions noted Objective Labs Result Diagrams: 03/23/21 14:46 03/23/21 14:46 [facility] Medical History DVT of axillary vein, acute right GERD (gastroesophageal reflux disease) History of anesthesia reaction History of shingles (~2008) HLD (hyperlipidemia) LBBB (left bundle branch block) (~2015) Nerve pain SHARONA (obstructive sleep apnea) Pre-diabetes Right carpal tunnel syndrome Surgical History History of arthroplasty of left knee Hx of abdominoplasty Hx of bilateral cataract extraction Hx of plastic surgery Hx of tonsillectomy Family History Grandmother Diabetes mellitus Hypertension Grandfather Diabetes mellitus Social History household members: significant other Smoking Status: Never smoker alcohol intake: current Discharge Assessment & Plan Assessment and Plan Assessment: Patient is doing well and is stable. Plan of Treatment: Patient is to continue outpatient physical therapy following discharge from hospital. First postoperative visit in clinic is scheduled for 2 weeks following discharge. Current pain management regimen is to be continued as it is adequately controlled the patient's pain level. Aspirin 81 mg twice daily is to be continued for 6 weeks for DVT prophylaxis. Aquacel dressing over the incision site is to remain clean, dry, and intact for 2 weeks. Contact the [facility] long[facility] if the dressing becomes damaged or soiled. Patient is to remain weight- bearing as tolerated with the assistance of a front wheel walker. Patient is to contact clinic with any concerns or questions. Any signs of increased redness, swelling, warmth, pain, or discharge from around the incision site should be reported to the clinic. Discharge Plan Discharge Plan Patient Disposition: Home Provider Discharge Comment: Discharge home after PT this afternoon Discharge orders & Medications Prescriptions: New acetaminophen 325 mg Tablet 650 mg PO TID Qty: 60 RF: 0 aspirin 81 mg Tablet,Delayed Release (Dr/Ec) 81 mg PO BID Qty: 60 RF: 0 ibuprofen 400 mg Tablet 400 mg PO Q4HR Qty: 60 RF: 0 docusate sodium [DOK] 100 mg Capsule 100 mg PO BID Qty: 20 RF: 0 oxycodone 5 mg Tablet 5 mg PO Q3HR PRN (Reason: Pain, Moderate (4-6)) Qty: 40 RF: 0 Continued atorvastatin 20 mg Tablet 20 mg PO BEDTIME RF: 0 escitalopram oxalate 5 mg Tablet 5 mg PO BEDTIME RF: 0 Discontinued ibuprofen 200 mg Capsule 200 mg PO QD-BID PRN (Reason: Pain) RF: 0 acetaminophen 500 mg Tablet 500 mg PO BID PRN (Reason: Pain) RF: 0 Follow up/Referrals: Osei Perry MD [Primary Care Provider] - Micaela Pete MD [Physician] - (2 weeks) Diet/Activity/Treatments Diet: Diet as Tolerated and Regular Activity: Weight-bearing as tolerated Cold/Heat Therapy: Apply ice to knee as needed Skin/Wound/Dressing Care Report to your healthcare provider any signs of infection, such as:: chills, fever, increased pain, unusual drainage and unusual redness Dressing: Keep dressing clean and dry. May remove Alton wrap in 48-72 hours. Leave dressing in place Visit Report/Discharge Packet Instructions: DI for Knee Replacement, DI for Prescription Opioid Use Stand Alone Forms: Surgery Discharge Discharge Data Primary Care Provider: Osei Perry Attending Provider: Micaela Pete
--- NOTE | 2021-03-25 15:56 | PC.NURSE ---
Discharge note: Patient left via wheelchair accompanied by REMOTE SENSING ANALYST and with all belongings. Room was checked prior to discharge. IV site was removed, tele was discontinued prior to start of shift. Education was given on medications and when to take, dressing care, when to follow up with surgeon, when to return to the hospital, s/sx of a stroke and what to do. Patient and spouse asked questions, acknowledge all education and teaching.
== END 2021-03-25 15:42 | disposition home or self-care (01) ==
LOC: OR 09:20 → AC 09:20
PROVIDERS: Internal Medicine; Admitting Provider Orthopaedic Surgery; PCP Family Medicine; Referring Provider Orthopaedic Surgery; Visit Provider Orthopaedic Surgery
PROC: 0SRC0JZ Replacement of Right Knee Joint with Synthetic Substitute, Open Approach (ICD-10-PCS; CPT 27447; principal; 2021-03-22 13:45)
DX: M17.11 Unilateral primary osteoarthritis, right knee (principal); Z86.718 Personal history of other venous thrombosis and embolism; G47.33 Obstructive sleep apnea (adult) (pediatric); E78.5 Hyperlipidemia, unspecified; R73.03 Prediabetes; R55 Syncope and collapse; I44.7 Left bundle-branch block, unspecified
CPT/HCPCS: 27447; 36415; 73560; 80053; 82962; 83735; 84484; 85014; 85018; 85025; 93005; 93010; 94762; 97116; 97161; 97530; C1776; G0378; C9290; J0690; J1100; J2250; J2274; J2405; J2704; J3010

== ENCOUNTER → 2022-02-02 14:40 | Outpatient (CLI) | payer MEDICARE, SELFPAY ==
[2021-03-22 18:18] VITALS: BMI 26.9
--- NOTE | 2022-02-02 14:42 | DI.ECHO.S_ITS ---
[facility] +---------+ : : [address] : [address] [place] : : : : [id number] : : : : Phone: [phone]---------+ Echocardiogram Report + + :Name: GERALDO COSTA Study Date: 02/02/2022 Height: 64 in : :[facility] ReadingLocation: Weight: 145 lb : : Gender: Female BSA: 1.7 m2 : :: 1940 Age: 82 yrs BP: 174/91 mmHg: :Reason For Study: Bradycardia : :Ordering Physician: JOHNATHON, : :DIANNE Harrison Performed By: Panchito Vargas : :Referring: DIANNE DIEGO : + + Interpretation Summary 1) Normal left ventricular thickness and size with low normal systolic function (EF 50-55%). 2) Normal right ventricular size and function. 3) There is mild aortic regurgitation. 4) Hypertension present during the study (BP 174/91mm Hg). 5) No prior Echo available for comparison. Procedure: A two-dimensional transthoracic echocardiogram with color flow and Doppler was performed. The study quality was technically adequate. There is no prior echocardiogram noted for this patient. Left Ventricle: The left ventricle is normal in size and wall thickness. Left ventricular systolic function is low normal. The ejection fraction is estimated to be 50-55%. There are no focal wall motion abnormalities. Diastolic parameters suggest a pseudonormalization pattern, consistent with probable elevated filling pressures. Right Ventricle: The right ventricle is normal in size and function. Atria: The left atrium is moderately dilated. Right atrial size is normal. The interatrial septum grossly appears intact with no obvious evidence for an atrial septal defect. Mitral Valve: There is mild mitral annular calcification. There is mild mitral regurgitation. Aortic Valve: The aortic valve is normal in structure and function. There is no aortic valve stenosis. There is mild aortic regurgitation. Tricuspid Valve: The tricuspid valve is normal in structure and function. There is trace tricuspid regurgitation. The right ventricular systolic pressure is estimated to be at least 32 mmHg based on an estimated right atrial pressure of 3 mm Hg. Pulmonic Valve: The pulmonic valve is normal in structure and function. There is mild pulmonic regurgitation. Great Vessels: The aortic root is normal size. The dimensions of the ascending aorta are normal. The IVC is of normal diameter and collapses greater than 50% with a sniff. This suggests a low right atrial pressure of 3 mm Hg. Pericardium/ Pleura There is no pericardial effusion. There is no pleural effusion. MMode/2D Measurements & Calculations LVIDd: 4.8 cm LVOT diam: 1.9 cm LVIDs: 3.5 cm Ao root diam: 2.6 cm FS: 27.1 % asc Aorta Diam: 2.8 cm IVSd: 1.0 cm LVPWd: 1.0 cm LV rincon. diameter/BSA (cm/m^2): 2.8 LV sys. diameter/BSA (cm/m^2): 2.1 LA dimension: 4.1 cm RA long axis: 4.0 cm LA A2 area: 18.6 cm2 LA A4 area: 23.9 cm2 LA length (vol): 6.0 cm LA vol: 62.7 ml LA vol index: 36.7 ml/m2 TAPSE_phl: 2.5 cm Doppler Measurements & Calculations Ao V2 max: 156.5 cm/sec LVOT Max Benson: 114.7 cm/sec Ao V2 mean: 102.8 cm/sec LV V1 max P.5 mmHg Ao max P.0 mmHg LV V1 VTI: 23.0 cm Ao mean P.0 mmHg DENNY(I,D): 2.4 cm2 Ao V2 VTI: 27.3 cm DENNY(V,D): 2.1 cm2 sev ratio: 0.84 DENNY indexed to BSA (cm^2/m^2): 1.4 AI P1/2t: 928.2 msec AI dec slope: 95.3 cm/sec2 MV E max benson: 82.6 cm/sec TR max benson: 268.0 cm/sec MV A max benson: 66.2 cm/sec TR max P.7 mmHg MV E/A: 1.2 Med Peak E' Benson: 4.8 cm/sec E/E' med: 17.1 Lat Peak E' Benson: 8.8 cm/sec E/E' lat: 9.4 E/e' average: 13.2 MV dec time: 0.19 sec SV(LVOT): 65.1 ml AV P1/2t-pr_phl: 929.0 msec AV VR_phl: 0.73 DENNY(VTI)/BSA_phl: 1.4 MV P1/2t-pr_phl: 56.0 msec Reading Physician:04:23 PM
== END ==
PROVIDERS: PCP Family Medicine; Referring Provider Physician Assistant; Visit Provider Physician Assistant
DX: R00.1 Bradycardia, unspecified (principal); I35.1 Nonrheumatic aortic (valve) insufficiency; I10 Essential (primary) hypertension
CPT/HCPCS: 93306